=== PATIENT | female | born 2000 | race Caucasian/White ===

== ENCOUNTER → 2021-03-20 | Outpatient (CLI) | payer SELFPAY ==
--- NOTE | 2021-03-20 12:24 | Diagnostic Imaging Report ---
INDICATION: survey. TECHNIQUE: Multiple real-time grayscale images were obtained over the gravid uterus. COMPARISON: There are no prior studies available for comparison. FINDINGS: There is a single live fetus is cephalic presentation. heart motion was noted and a rate of 156 BPM was recorded. There were no abnormalities identified. The placenta is anterior and along the left. There is no sign of a previa. The amniotic fluid volume is within normal limits. The growth parameters are fairly uniform. The cervix was noted and measures 3.4 cm in length. Also, there do appear to be two hypoechoic areas along the anterior aspect of the uterine body. These measure 5.8 x 3.4 x 4.9 cm and 1.8 x 1.5 x 1.7 cm. I suspect that these are secondary to uterine fibroids. Biometrical measurements are as follows: Biparietal 4.51 cm, age 19 weeks 5 days. Head circumference 16.78 cm, age 19 weeks 4 days. Abdominal circumference 13.36 cm, age 18 weeks 6 days. Femur length 3.09 cm, age 19 weeks 5 days. Sonographic estimate age: 19 weeks 4 days. Sonographic estimated date of delivery: 08/10/2021. Estimated Weight: 281 gm (+/- 41 gm). LMP percentile: 21%. heart rate: 156 beats per minute. number: 1 of 1. IMPRESSION: 1. There is a single live fetus of approximately 19 weeks 4 days gestation +/- 1.5 weeks. The EDC is August 10, 2021. 2. There were no abnormalities identified. 3. The growth parameters are fairly uniform. 4. There are two hypoechoic lesions along the anterior aspect of the uterine body. The larger of these measures almost 6 cm in size. These findings are suspicious for uterine fibroids. Dictated by: Dictated on workstation # [id number]
== END ==
LOC: RAD 10:05
PROVIDERS: ATTEND Obstetrics & Gynecology
DX: Z34.92 Encounter for supervision of normal pregnancy, unspecified, second trimester (principal); Z3A.19 19 weeks gestation of pregnancy
CPT/HCPCS: 76805

== ENCOUNTER → 2021-05-28 | Outpatient (CLI) | payer OTHER ==
--- NOTE | 2021-05-28 13:39 | Diagnostic Imaging Report ---
INDICATION: Uterine fibroids. Evaluate growth. TECHNIQUE: Multiple real-time grayscale images were obtained over the gravid uterus. COMPARISON: 03/20/2021. FINDINGS: The cervix is closed measuring 4.0 cm. Placenta is anteriorly positioned and there is no previa. The placenta is normal in thickness for gestational age. The JOSIANE is normal at 16.27 cm. In the anterior myometrium, there is a circumscribed hypoechoic mass measuring 7.1 x 3.4 x 6.1 cm and compatible with patient's known large fibroid. The fibroid has mildly increased in size since prior examination, previously had a maximum dimension of 6 cm. Biometrical measurements are as follows: Biparietal 7.41 cm, age 29 weeks 6 days. Head circumference 26.47 cm, age 28 weeks 6 days. Abdominal circumference 24.02 cm, age 28 weeks 3 days. Femur length 5.99 cm, age 31 weeks 2 days. Sonographic estimate age: 29 weeks 5 days. Sonographic estimated date of delivery: 08/08/21. Estimated Weight: 1390 gm (+/- 203 gm). LMP percentile: 32%. heart rate: 149 beats per minute. number: 1 of 1. IMPRESSION: 1. Single live intrauterine demonstrates expected growth since prior ultrasound of 03/20/2021. 2. The fetus remains near the 32nd percentile in weight for gestational age. 3. The large anterior myometrial fibroid has mildly increased in size since prior exam. Dictated by: Dictated on workstation # [id number]
== END ==
LOC: RAD 10:15
PROVIDERS: ATTEND Obstetrics & Gynecology
DX: O34.599 Maternal care for other abnormalities of gravid uterus, unspecified trimester (principal); D25.9 Leiomyoma of uterus, unspecified; Z3A.00 Weeks of gestation of pregnancy not specified
CPT/HCPCS: 76816

== ENCOUNTER 2021-08-07 10:35 | Inpatient (IN) | payer OTHER ==
[~2021-08-07] VITALS: Ht 162.5 cm; Wt 76.8 kg
[2021-08-07] VITALS (10 sets, daily range): BP systolic 130–148; BP diastolic 73–87
[2021-08-07] MEDS ORDERED: PREN-8 PO (11:03)
[2021-08-07] MEDS ORDERED: AMPICILLIN FOR IV USE 2,000 MG in WATER (STERILE) FOR INJECTION 14.8 ML IV SCH (11:29)
[2021-08-07] MEDS ORDERED: MINERAL OIL CONCENTRATE 99.9% 15 ML UDC TOP PRN (11:30)
[2021-08-07 12:05] LABS: BASOPHILS % (AUTO) 0 % (0-10); BILIRUBIN,URINE NEGATIVE (NEGATIVE); CLARITY,URINE CLEAR; COLOR,URINE YELLOW; EOSINOPHILS % (AUTO) 0 % (0-10); GLUCOSE, URINE (UA) NEGATIVE (NEGATIVE); HEMATOCRIT 37 % (35-52); HEMOGLOBIN 12.4 g/dL (11.5-16.0); KETONES,URINE NEGATIVE (NEGATIVE); LEUKOCYTE ESTERASE ,URINE TRACE (NEGATIVE); LYMPHOCYTES # (AUTO) 1.7 10^3/uL (1.0-4.0); LYMPHOCYTES % (AUTO) 14 % (12-44); MEAN CORPUSCULAR HEMOGLOBIN 29 pg (25-34); MEAN CORPUSCULAR HGB CONC 34 g/dL (32-36); MEAN CORPUSCULAR VOLUME 87 fL (80-99); MEAN PLATELET VOLUME 11.2 fL (9.0-12.2); MONOCYTES # (AUTO) 1.3 10^3/uL (0.0-1.0); MONOCYTES % (AUTO) 11 % (0-12); NEUTROPHILS # (AUTO) 8.7 10^3/uL (1.8-7.8); NEUTROPHILS % (AUTO) 74 % (42-75); NITRITE,URINE NEGATIVE (NEGATIVE); PH,URINE 6.5 (5-9); PLATELET COUNT 228 10^3/uL (130-400); PROTEIN,URINE NEGATIVE (NEGATIVE); WHITE BLOOD COUNT 11.7 10^3/uL (4.3-11.0)
[2021-08-07 12:13] LABS: BACTERIA,URINE NEGATIVE /HPF; WBC,URINE RARE /HPF
[2021-08-07] MEDS: D5 LR IV SOLUTION 1,000 ML IV SCH (12:17)
--- NOTE | 2021-08-07 12:28 | History & Physical-OB ---
OB - Chief Complaint & HPI Date/Time Date of Admission: Date of Admission: Aug 07, 2021 at 11:22 Date seen by a Provider: Aug 07, 2021 Time Seen by a Provider: 12:15 Chief Complaint/History OB-Reason for Admission/Chief: Onset of Labor Hx : 1 Hx Para: 0 Expected Date of Delivery: Aug 09, 2021 Gestational Age in Weeks: 39 Gestational Age in Days: 5 Other reason for admission: Patient presents with complaint of contractions. She was 5 cm dilated in the clinic and 6 cm on arrival to the hospital but contractions are irregular. She has history of GBS bactiuria and was treated in first trimester. is complicated but elevated blood pressures the last few visits but no proteinuria. She has no headache or blurred vision. She has a known uterine fibroid but this has not cause issues with the . It remains palpable. History of Labs AB +/- HBsAg - Hep C - HIV - Rub I VDRL NR GBS + Allergies and Home Medications Allergies Coded Allergies: No Known Drug Allergies (Unverified , 08/07/21) Patient Home Medication List Home Medication List Reviewed: Yes Vit W-Ca,Fe,FA(<1 mg) ( Formula) 1 Each Tablet, 1 EACH PO, (Reported) Entered as Reported by: MICKEY ACHARYA on 08/07/21 1103 Last Action: New Order OB - History Hx of Present Ultrasounds: Normal mid trimester US Obstetrical Complications: Gestational Hypertension Medical Complications: None Information Induced Hypertension: Yes Maternal Gestational Diabetes: No Hemorrhage: No Obstetrical History Hx : 1 Hx Para: 0 Hx # Term Pregnancies: 0 Hx # Pregnancies: 0 Number of Living Children: 0 Hx Termination: No Patient Past Medical History uterine fibroid Social History/Family History Alcohol Use: Denies Use Recreational Drug Use: No Smoking Cessation: Never smoker 2nd Hand Smoke Exposure: No Immunizations Tetanus Booster (TDap): Less than 5yrs (05/19/21) Rubella: immune RPR/VDRL: Negative GBS Status: Positive HBsAG: Negative OB - Admission Exam Physical Exam Vitals: see mid level business analyst RN reported BP 140/90 HEENT: NCAT Heart: Rhythm Normal Lungs: Clear Abdomen: Gravid Extremities: Normal Reflexes: Normal Cervical Dilatation: 6cm Effacement: 75% Station: -1 Membranes: Intact Heart Rate: 140's Accelerations: Accelerations Present Decelerations: No Decelerations Short Term Variability: Present Ultrasound Technol Variability: Average (6-25) Contractions on Admission: 6-10 Minutes Apart Labs Laboratory Tests Test 08/07/21 11:52 Range/Units White Blood Count 11.7 H 4.3-11.0 10^3/uL Red Blood Count 4.25 3.80-5.11 10^6/uL Hemoglobin 12.4 11.5-16.0 g/dL Hematocrit 37 35-52 % Mean Corpuscular Volume 87 80-99 fL Mean Corpuscular Hemoglobin 29 25-34 pg Mean Corpuscular Hemoglobin Concent 34 32-36 g/dL Red Cell Distribution Width 13.2 10.0-14.5 % Platelet Count 228 130-400 10^3/uL Mean Platelet Volume 11.2 9.0-12.2 fL Immature Granulocyte % (Auto) 0 % Neutrophils (%) (Auto) 74 42-75 % Lymphocytes (%) (Auto) 14 12-44 % Monocytes (%) (Auto) 11 0-12 % Eosinophils (%) (Auto) 0 0-10 % Basophils (%) (Auto) 0 0-10 % Neutrophils # (Auto) 8.7 H 1.8-7.8 10^3/uL Lymphocytes # (Auto) 1.7 1.0-4.0 10^3/uL Monocytes # (Auto) 1.3 H 0.0-1.0 10^3/uL Eosinophils # (Auto) 0.0 0.0-0.3 10^3/uL Basophils # (Auto) 0.0 0.0-0.1 10^3/uL Immature Granulocyte # (Auto) 0.0 0.0-0.1 10^3/uL Urine Color YELLOW Urine Clarity CLEAR Urine pH 6.5 5-9 Urine Specific [place] <=1.005 1.016-1.022 Urine Protein NEGATIVE NEGATIVE Urine Glucose (UA) NEGATIVE NEGATIVE Urine Ketones NEGATIVE NEGATIVE Urine Nitrite NEGATIVE NEGATIVE Urine Bilirubin NEGATIVE NEGATIVE Urine Urobilinogen 0.2 < = 1.0 MG/DL Urine Leukocyte Esterase TRACE H NEGATIVE Urine RBC (Auto) 2+ H NEGATIVE Urine RBC 2-5 H /HPF Urine WBC RARE /HPF Urine Squamous Epithelial Cells NONE /HPF Urine Crystals NONE /LPF Urine Bacteria NEGATIVE /HPF Urine Casts NONE /LPF Urine Mucus NEGATIVE /LPF Urine Culture Indicated NO OB - Assessment/Plan/Diagnosis Assessment Assessment: active labor Admission Dx 39 + weeks in labor gestational hypertension Group B Strep positive Admit for labor and ampicillin for GBS prophylaxis Keanu Sanchez in [place] Anticipate Admission Status: Inpatient Order (span 2 midnights) Reason for Inpatient Admission: labor Plan Plan: Expectant Management SHAWNA KILLIAN DO Aug 07, 2021 12:28
[2021-08-07] MEDS ORDERED: OXYTOCIN PRE-MIX DRIP 500 ML IV ONE (15:45)
[2021-08-07] MEDS: AMPICILLIN FOR IV USE 1,000 MG in WATER (STERILE) FOR INJECTION 7.4 ML IV SCH (15:48)
[2021-08-07] MEDS ORDERED: LIDOCAINE/EPI 2% 1:200,00 (XYLOCAINE) 20 ML VIAL ONE (15:54)
--- NOTE | 2021-08-07 16:29 | OB Labor & Delivery Record ---
Vag Delivery Note Vag Delivery Note Date of Delivery: 08/07/21 Preoperative Diagnosis: Brianna Fowler is a 21 /Para 1 / 0,Gestational Age 39 5/7 weeks in labor, gestational hypertension, GBS + Postoperative Diagnosis: Same Surgeon: SHAWNA KILLIAN DO Anesthesia: 1% lidocaine/local Delivery Type: Findings: Viable female , apgars pending, weight pending Lacerations: left vaginal wall and left anterior labial/periurethral Intact placenta with 3 vessel cord. No nuchal cord, body cord or shoulder dystocia Estimated Blood Loss: 200 ml Complications: None Condition: Stable Description of Procedure: The patient is a 21 year old female who presented in labor . She was admitted and informed consent was obtained. Her labor course was remarkable for ampicillin for GBS prophylaxis and AROM. She progressed to complete dilatation and began to push. She was then set up for delivery. The 's head was delivered atraumatically in the JUANITA position. The shoulders and remainder of the 's body were then delivered without difficulty. Upon delivery, the head was held below the level of the perineum and the mouth and nares were bulb suctioned. The cord was doubly clamped and cut and the was handed off to the pediatric staff. An intact placenta with 3-vessel cord delivered via Samantha and there was found to be minimal bleeding.~ Vigorous fundal massage was performed and the fundus was found to be firm. IV oxytocin was given. Examination of the vagina and perineum revealed a left vaginal wall/sulcus and left anterior labial periurethral laceration repaired in the usual fashion with 3-0 vicryl suture and topical ane sthetic. Following the repair, sponge, instrument and needle counts were correct. Mom and baby were both in stable condition in the labor suite. Vitals - Labs Vital Signs - I&O Vital Signs Date Time Temp Pulse Resp B/P (MAP) Pulse Ox O2 Delivery O2 Flow Rate FiO2 08/07/21 14:15 137/81 (99) 08/07/21 13:15 36.8 146/85 (105) 08/07/21 11:50 37.3 111 16 98 Room Air Labs Laboratory Tests 08/07/21 11:52: White Blood Count 11.7H, Red Blood Count 4.25, Hemoglobin 12.4, Hematocrit 37, Mean Corpuscular Volume 87, Mean Corpuscular Hemoglobin 29, Mean Corpuscular Hemoglobin Concent 34, Red Cell Distribution Width 13.2, Platelet Count 228, Mean Platelet Volume 11.2, Immature Granulocyte % (Auto) 0, Neutrophils (%) (Auto) 74, Lymphocytes (%) (Auto) 14, Monocytes (%) (Auto) 11, Eosinophils (%) (Auto) 0, Basophils (%) (Auto) 0, Neutrophils # (Auto) 8.7H, Lymphocytes # (Auto) 1.7, Monocytes # (Auto) 1.3H, Eosinophils # (Auto) 0.0, Basophils # (Auto) 0.0, Immature Granulocyte # (Auto) 0.0, Urine Color YELLOW, Urine Clarity CLEAR, Urine pH 6.5, Urine Specific [place] <=1.005, Urine Protein NEGATIVE, Urine Glucose (UA) NEGATIVE, Urine Ketones NEGATIVE, Urine Nitrite NEGATIVE, Urine Bilirubin NEGATIVE, Urine Urobilinogen 0.2, Urine Leukocyte Esterase TRACEH, Urine RBC (Auto) 2+H, Urine RBC 2-5H, Urine WBC RARE, Urine Squamous Epithelial Cells NONE, Urine Crystals NONE, Urine Bacteria NEGATIVE, Urine Casts NONE, Urine Mucus NEGATIVE, Urine Culture Indicated NO SHAWNA KILLIAN DO Aug 07, 2021 16:29
[2021-08-07] MEDS ORDERED: BENZOCAINE/MENTHOL (DERMOPLAST) 56 ML CAN TP PRN (16:30)
[2021-08-07] MEDS ORDERED: OXYTOCIN PRE-MIX DRIP 500 ML IV SCH (16:30)
[2021-08-07] MEDS ORDERED: MEASLES,MUMPS,RUBELLA 1 EA INJ SQ ONE (16:30)
[2021-08-07] MEDS ORDERED: NALOXONE 0.4 MG/ML 1 ML (NARCAN) VIAL IV PRN (16:30)
[2021-08-07] MEDS ORDERED: WITCH HAZEL(TUCKS) 40 EA JAR TOP PRN (16:30)
[2021-08-07] MEDS ORDERED: TETANUS,DIPTH,PERTUSS P/F (BOOSTRIX) 0.5 ML VIAL IM ONE (16:30)
[2021-08-07] MEDS: ACETAMINOPHEN 500 MG TAB (TYLENOL) PO SCH (21:07)
[2021-08-07] MEDS: CATHETER FLUSH 10 ML SYR IV SCH (21:29)
[2021-08-07] MEDS: DOCUSATE SODIUM 100 MG (COLACE) CAP PO SCH (21:29)
[2021-08-07] MEDS ORDERED: CATHETER FLUSH 10 ML SYR IV SCH (22:00)
[2021-08-07] MEDS: IBUPROFEN 600 MG (MOTRIN) TAB PO SCH (23:30)
[2021-08-08 00:12] VITALS: BP 121/66
[2021-08-08 04:00] VITALS: BP 120/76
[2021-08-08] MEDS: ACETAMINOPHEN 500 MG TAB (TYLENOL) PO SCH ×3 (06:00→21:45)
[2021-08-08] MEDS: PRENATAL VITAMIN 1 EA TAB PO SCH (06:01)
[2021-08-08] MEDS: AMPICILLIN FOR IV USE 1,000 MG in WATER (STERILE) FOR INJECTION 7.4 ML IV SCH (06:08)
[2021-08-08] MEDS: CATHETER FLUSH 10 ML SYR IV SCH (06:08)
[2021-08-08] MEDS: D5 LR IV SOLUTION 1,000 ML IV SCH (06:08)
[2021-08-08 06:12] LABS: BASOPHILS % (AUTO) 0 % (0-10); EOSINOPHILS # (AUTO) 0.1 10^3/uL (0.0-0.3); EOSINOPHILS % (AUTO) 0 % (0-10); HEMATOCRIT 32 % (35-52); HEMOGLOBIN 10.6 g/dL (11.5-16.0); LYMPHOCYTES # (AUTO) 2.8 10^3/uL (1.0-4.0); LYMPHOCYTES % (AUTO) 21 % (12-44); MEAN CORPUSCULAR HEMOGLOBIN 29 pg (25-34); MEAN CORPUSCULAR HGB CONC 34 g/dL (32-36); MEAN CORPUSCULAR VOLUME 87 fL (80-99); MEAN PLATELET VOLUME 11.2 fL (9.0-12.2); MONOCYTES # (AUTO) 1.6 10^3/uL (0.0-1.0); MONOCYTES % (AUTO) 12 % (0-12); NEUTROPHILS # (AUTO) 8.7 10^3/uL (1.8-7.8); NEUTROPHILS % (AUTO) 66 % (42-75); PLATELET COUNT 188 10^3/uL (130-400); WHITE BLOOD COUNT 13.2 10^3/uL (4.3-11.0)
[2021-08-08] MEDS: IBUPROFEN 600 MG (MOTRIN) TAB PO SCH ×4 (07:14→23:42)
[2021-08-08 08:00] VITALS: BP 122/75
[2021-08-08] MEDS: DOCUSATE SODIUM 100 MG (COLACE) CAP PO SCH ×2 (08:17→20:57)
[2021-08-08] MEDS: FERROUS SULF 325 MG (IRON) TAB PO SCH (08:17)
--- NOTE | 2021-08-08 10:23 | Postpartum Progress Note ---
Note Note Day # 1 Subjective: Patient is without complaints. Ambulating, voiding. Tolerating a regular diet without nausea or vomiting. Normal lochia. Pain is well controlled with oral pain medications. Breast feeding. Objective: Physical Exam: General - Alert and oriented, no apparent distress Abdomen - Soft, appropriately tender to palpation, non-distended, fundus firm at umbilicus Extremities - no edema, negative Jessica's bilaterally Assessment: Post- day # 1, status post vaginal delivery. Recovering well, hemodynamically stable Acute blood loss anemia Plan: Routine care. Encourage breast feeding. Encourage ambulation. Ferrous sulfate supplementation. Plan for discharge tomorrow Vitals - Labs Vital Signs - I&O Vital Signs Date Time Temp Pulse Resp B/P (MAP) Pulse Ox O2 Delivery O2 Flow Rate FiO2 08/08/21 08:00 36.0 73 16 122/75 (91) 99 Room Air 08/08/21 08:00 Room Air 08/08/21 04:00 36.8 82 16 120/76 (91) 99 Room Air 08/08/21 00:12 36.2 80 16 121/66 (84) 98 Room Air 08/07/21 21:00 97 Room Air 08/07/21 20:00 36.6 89 20 132/73 (92) 97 Room Air 08/07/21 17:55 77 135/74 (94) 08/07/21 17:30 134/84 (101) 08/07/21 17:19 78 134/84 (101) 08/07/21 17:15 130/79 (96) 08/07/21 17:05 72 130/79 (96) 08/07/21 16:45 148/79 (102) 08/07/21 14:15 137/81 (99) 08/07/21 13:15 36.8 146/85 (105) 08/07/21 11:50 37.3 111 16 98 Room Air I & O 08/08/21 07:00 Intake Total 1050 ml Balance 1050 ml Labs Laboratory Tests 08/07/21 11:52: White Blood Count 11.7H, Red Blood Count 4.25, Hemoglobin 12.4, Hematocrit 37, Mean Corpuscular Volume 87, Mean Corpuscular Hemoglobin 29, Mean Corpuscular He moglobin Concent 34, Red Cell Distribution Width 13.2, Platelet Count 228, Mean Platelet Volume 11.2, Immature Granulocyte % (Auto) 0, Neutrophils (%) (Auto) 74, Lymphocytes (%) (Auto) 14, Monocytes (%) (Auto) 11, Eosinophils (%) (Auto) 0, Basophils (%) (Auto) 0, Neutrophils # (Auto) 8.7H, Lymphocytes # (Auto) 1.7, Monocytes # (Auto) 1.3H, Eosinophils # (Auto) 0.0, Basophils # (Auto) 0.0, Immature Granulocyte # (Auto) 0.0, Urine Color YELLOW, Urine Clarity CLEAR, Ur ine pH 6.5, Urine Specific [place] <=1.005, Urine Protein NEGATIVE, Urine Glucose (UA) NEGATIVE, Urine Ketones NEGATIVE, Urine Nitrite NEGATIVE, Urine Bilirubin NEGATIVE, Urine Urobilinogen 0.2, Urine Leukocyte Esterase TRACEH, Urine RBC (Auto) 2+H, Urine RBC 2-5H, Urine WBC RARE, Urine Squamous Epithelial Cells NONE, Urine Crystals NONE, Urine Bacteria NEGATIVE, Urine Casts NONE, Urine Mucus NEGATIVE, Urine Culture Indicated NO 08/08/21 05:43: White Blood Count 13.2H, Red Blood Count 3.62L, Hemoglobin 10.6L, Hematocrit 32L , Mean Corpuscular Volume 87, Mean Corpuscular Hemoglobin 29, Mean Corpuscular Hemoglobin Concent 34, Red Cell Distribution Width 13.2, Platelet Count 188, Mean Platelet Volume 11.2, Immature Granulocyte % (Auto) 0, Neutrophils (%) (Auto) 66, Lymphocytes (%) (Auto) 21, Monocytes (%) (Auto) 12, Eosinophils (%) (Auto) 0, Basophils (%) (Auto) 0, Neutrophils # (Auto) 8.7H, Lymphocytes # (Auto) 2.8, Monocytes # (Auto) 1.6H, Eosinophils # (Auto) 0.1, Basophils # (Auto) 0.0, Immature Granulocyte # (Auto) 0.1 SHAILESH VILLALTA CHILD CARE WORKER Aug 08, 2021 10:23
--- NOTE | 2021-08-08 10:48 | Discharge Inst-Women's Service ---
Discharge Inst-Women's Serv Depart Medication/Instructions New, Converted or Re-Newed RX: Transmitted to Pharmacy Consults/Follow Up Additional Follow Up: Yes Orders/Referrals 1-2wk PP appt and 6wk PP appt Activity Activity: Activity as Tolerated Driving Instructions: No Driving for 1 Week NO SMOKING: NO SMOKING Nothing Inside Vagina: No Douching, No [place], No Tampons Diet Discharge Diet: No Restrictions Symptoms to Report to : Pain Increased, Fever Over 101 Degrees F, Vaginal Bleeding Increase For Any Problems or Questions: Contact Your Physician SHAILESH VILLALTA APRN Aug 08, 2021 10:48
[2021-08-08 12:00] VITALS: BP 115/76
[2021-08-08] MEDS ORDERED: ACET-93 PO (13:35)
[2021-08-08] MEDS ORDERED: IBUP-844 PO (13:35)
[2021-08-08] MEDS ORDERED: FERR325T24 PO (13:35)
[2021-08-08 16:15] VITALS: BP 130/79
[2021-08-08 20:00] VITALS: BP 136/63
[2021-08-09] VITALS: BP 124/70
[2021-08-09 06:00] VITALS: BP 118/76
[2021-08-09] MEDS: ACETAMINOPHEN 500 MG TAB (TYLENOL) PO SCH (06:12)
[2021-08-09] MEDS: IBUPROFEN 600 MG (MOTRIN) TAB PO SCH ×2 (06:12→12:11)
[2021-08-09] MEDS: PRENATAL VITAMIN 1 EA TAB PO SCH (06:12)
[2021-08-09 10:00] VITALS: BP 141/76
[2021-08-09] MEDS: DOCUSATE SODIUM 100 MG (COLACE) CAP PO SCH (12:11)
[2021-08-09] MEDS: FERROUS SULF 325 MG (IRON) TAB PO SCH (12:11)
== END 2021-08-09 14:22 | disposition home or self-care (01) | DRG 806 ==
LOC: WSo 10:35 → LDRP 10:36 → WSo 11:29 → LDRP 18:44
PROVIDERS: ADMIT Obstetrics & Gynecology; ATTEND Obstetrics & Gynecology
PROC: 10E0XZZ Delivery of Products of Conception, External Approach (ICD-10-PCS; principal; 2021-08-07)
PROC: 0UQMXZZ Repair Vulva, External Approach (ICD-10-PCS; 2021-08-07)
PROC: 0UQGXZZ Repair Vagina, External Approach (ICD-10-PCS; 2021-08-07)
DX: O13.4 Gestational [pregnancy-induced] hypertension without significant proteinuria, complicating childbirth (principal); D62 Acute posthemorrhagic anemia; Z37.0 Single live birth; O99.824 Streptococcus B carrier state complicating childbirth; Z3A.39 39 weeks gestation of pregnancy; O71.82 Other specified trauma to perineum and vulva; O71.4 Obstetric high vaginal laceration alone; O90.81 Anemia of the puerperium
CPT/HCPCS: 36415; 81000; 85025; 86850; 86900; 86901; 99212

== ENCOUNTER → 2021-09-18 | Outpatient (CLI) | payer OTHER ==
[~2021-09-18] MED LIST: ACET-93 PO; FERR325T24 PO; IBUP-844 PO; PREN-8 PO
--- NOTE | 2021-09-18 11:12 | Diagnostic Imaging Report ---
PROCEDURE: Pelvic comp/transvaginal sonogram. TECHNIQUE: Complete transabdominal and transvaginal pelvic ultrasound was performed. In addition, limited pelvic Doppler was performed. INDICATION: 6 weeks , patient has a known fibroid. Study is performed for followup. Uterus measures 10.9 x 7.4 x 7.6 cm. There is a 5.4 x 4.9 x 3.9 similar fibroid anterior fundus as well as a 2.6 x 2.9 x 2.2 cm fibroid in the posterior fundus. Endometrium is 6 cm in thickness. Right ovary measures 3.1 x 2.7 x 1.8 cm and left ovary is 2.8 x 2.4 x 1.8 cm. The ovaries contain small follicles. There is blood flow to both ovaries. No adnexal mass is seen. There is trace free fluid. IMPRESSION: Enlarged fibroid uterus. No other significant abnormality is detected. Dictated by: Dictated on workstation # [id number]
== END ==
LOC: RAD 10:00
PROVIDERS: ATTEND Nurse Practitioner Women's Health
DX: D25.9 Leiomyoma of uterus, unspecified (principal)
CPT/HCPCS: 76830; 76856